=== PATIENT | male | born 1950 | race Caucasian/White ===

== ENCOUNTER 2023-07-20 20:05 | Inpatient (IN) | payer MEDICARE, OTHER ==
[~2023-07-20] VITALS: Ht 167.6 cm; Wt 76.2 kg
[2023-07-20 20:30] VITALS: BP 123/98; TEMP 98.4; O2SAT 96
[2023-07-20] MEDS ORDERED: TEMAZEPAM 15 MG CAPSULE PO PRN (22:00)
[2023-07-20] MEDS ORDERED: ACETAMINOPHEN 325 MG TABLET PO PRN (23:00)
[2023-07-20] MEDS ORDERED: ONDANSETRON HCL/PF 4 MG/2 ML VIAL IVP PRN (23:00)
[2023-07-20] MEDS ORDERED: Z GUARD REMEDY 4 OZ OINT TP PRN (23:00)
[2023-07-20] MEDS ORDERED: DEXTROSE 50%-WATER 50 ML DISP.SYRIN IV PRN (23:00)
[2023-07-20] MEDS ORDERED: MAGNESIUM HYDROXIDE 30 ML UDC PO PRN (23:00)
[2023-07-20] MEDS: LEVETIRACETAM (250 MG) 250 MG TABLET PO SCH (23:37)
[2023-07-20] MEDS: ENOXAPARIN SODIUM 40 MG/0.4 ML DISP.SYRIN SQ SCH (23:41)
[2023-07-20] MEDS: IV NS 0.9% 1,000 ML IV PRN (23:45)
[2023-07-21] VITALS (7 sets, daily range): BP systolic 115–141; BP diastolic 60–94; TEMP 97.8–99.9; O2SAT 96–97
[2023-07-21] MEDS ORDERED: CYAN10006 PO (03:35)
[2023-07-21] MEDS ORDERED: HYDR12.55 PO (03:35)
[2023-07-21] MEDS ORDERED: TAMS-12 PO (03:35)
[2023-07-21] MEDS ORDERED: DONE10TA44 PO (03:35)
[2023-07-21] MEDS ORDERED: ASPI-1420 PO (03:35)
[2023-07-21] MEDS ORDERED: METF-440 PO (03:35)
[2023-07-21] MEDS ORDERED: LOSA100T31 PO (03:35)
[2023-07-21] MEDS ORDERED: ROSU10TA2 PO (03:35)
[2023-07-21 06:17] LABS: BASOPHILS % (AUTO) 0.5 % (0.0-2.0); EOSINOPHILS # (AUTO) 0.3 K/uL (0.0-0.7); EOSINOPHILS % (AUTO) 4.4 % (0.0-6.0); HEMATOCRIT 38 % (39-51); HEMOGLOBIN 12.3 g/dL (13.5-17.5); LYMPHOCYTES # (AUTO) 1.8 K/uL (0.8-4.8); LYMPHOCYTES % (AUTO) 25.5 % (20.0-44.0); MEAN CORPUSCULAR HEMOGLOBIN 28 PG (26.0-33.0); MEAN CORPUSCULAR HGB CONC 33 g/dl (31.0-36.0); MEAN CORPUSCULAR VOLUME 86 fL (80-96); MONOCYTES # (AUTO) 0.6 K/uL (0.1-1.30); MONOCYTES % (AUTO) 9.1 % (2.0-12.0); NEUTROPHILS # (AUTO) 4.2 K/uL (1.8-8.9); NEUTROPHILS % (AUTO) 60.5 % (43.0-81.0); PLATELET COUNT (AUTO) 215 K/uL (150-450); RED CELL DISTRIBUTION WIDTH 14.4 % (11.5-15.0); WHITE BLOOD COUNT (AUTO) 6.9 K/uL (4.3-11.0)
[2023-07-21 06:37] LABS: ALANINE AMINOTRANSFERASE 16 U/L (12-78); ALBUMIN 2.9 g/dL (3.4-5.0); ALKALINE PHOSPHATASE 91 U/L (46-116); ASPARTATE AMINOTRANSFERASE 25 U/L (15-37); BILIRUBIN,DIRECT 0.1 mg/dL (0.0-0.2); BILIRUBIN,TOTAL 0.8 mg/dL (0.2-1.0); TOTAL PROTEIN, SERUM 6.6 g/dL (6.4-8.2)
[2023-07-21 06:49] LABS: CALCIUM, SERUM 8.5 mg/dL (8.5-10.1); CREATININE 0.8 mg/dL (0.6-1.3); MAGNESIUM 1.8 mg/dL (1.8-2.4); PHOSPHORUS 3.1 mg/dL (2.5-4.9); POTASSIUM 3.6 mmol/L (3.5-5.1)
[2023-07-21 07:11] LABS: THYROID STIMULATING HORMONE 2.473 uIU/mL (0.358-3.74)
[2023-07-21] MEDS: BLOOD SUGAR DIAGNOSTIC 1 EACH STRIP IN SCH ×4 (07:25→21:15)
[2023-07-21] MEDS: PANTOPRAZOLE 40 MG TABLET.DR PO SCH (08:02)
[2023-07-21] MEDS ORDERED: TEMA15CA5 PO (08:20)
[2023-07-21] MEDS: ASPIRIN EC 81 MG TABLET.DR PO SCH (08:51)
[2023-07-21] MEDS: LEVETIRACETAM (250 MG) 250 MG TABLET PO SCH (08:51)
[2023-07-21] MEDS: TAMSULOSIN 0.4 MG CAP.SR.24H PO SCH (08:52)
[2023-07-21] MEDS ORDERED: IOHEXOL-350 100 ML VIAL IV ONE (10:50)
[2023-07-21] MEDS ORDERED: IV NS 0.9% 250 ML IV ONE (10:51)
[2023-07-21] MEDS: INSULIN REGULAR, HUMAN 100 UNIT/ML 3 ML VIAL SQ PRN ×2 (12:04→17:52)
[2023-07-21] MEDS: ENOXAPARIN SODIUM 40 MG/0.4 ML DISP.SYRIN SQ SCH (20:30)
[2023-07-21] MEDS ORDERED: DONEPEZIL 5 MG TABLET PO SCH (22:00)
[2023-07-21] MEDS ORDERED: ATORVASTATIN 10 MG TABLET PO SCH (22:00)
[2023-07-22 00:54] VITALS: BP 133/80; TEMP 97.9; O2SAT 97
[2023-07-22] MEDS: IV NS 0.9% 1,000 ML IV PRN (03:41)
[2023-07-22 04:37] VITALS: BP 121/65; TEMP 98.6; O2SAT 96
[2023-07-22] MEDS: BLOOD SUGAR DIAGNOSTIC 1 EACH STRIP IN SCH ×2 (06:03→12:04)
[2023-07-22 06:52] LABS: CALCIUM, SERUM 8.6 mg/dL (8.5-10.1); CREATININE 0.7 mg/dL (0.6-1.3); POTASSIUM 3.7 mmol/L (3.5-5.1)
[2023-07-22 08:00] VITALS: BP 134/77; TEMP 97.7; O2SAT 95
[2023-07-22] MEDS: PANTOPRAZOLE 40 MG TABLET.DR PO SCH (08:05)
[2023-07-22] MEDS: ASPIRIN EC 81 MG TABLET.DR PO SCH (08:06)
[2023-07-22] MEDS: TAMSULOSIN 0.4 MG CAP.SR.24H PO SCH (08:06)
[2023-07-22] MEDS ORDERED: CLOP75TA15 PO (10:48)
[2023-07-22 12:00] VITALS: BP 128/72; TEMP 97.9; O2SAT 97
[2023-07-22] MEDS: INSULIN REGULAR, HUMAN 100 UNIT/ML 3 ML VIAL SQ PRN (13:22)
== END 2023-07-22 17:02 | disposition home or self-care (01) | DRG 68 ==
LOC: TELE 20:05
PROVIDERS: ADMIT Nurse Practitioner Family; ATTEND Nurse Practitioner Acute Care
DX: I65.23 Occlusion and stenosis of bilateral carotid arteries (principal); E87.20 Acidosis, unspecified; E78.5 Hyperlipidemia, unspecified; Z86.73 Personal history of transient ischemic attack (TIA), and cerebral infarction without residual deficits; N40.0 Benign prostatic hyperplasia without lower urinary tract symptoms; E11.9 Type 2 diabetes mellitus without complications; I10 Essential (primary) hypertension; Z79.84 Long term (current) use of oral hypoglycemic drugs; Z79.82 Long term (current) use of aspirin; Z79.899 Other long term (current) drug therapy; F03.A0 Unspecified dementia, mild, without behavioral disturbance, psychotic disturbance, mood disturbance, and anxiety; M50.31 Other cervical disc degeneration, high cervical region; Z79.02 Long term (current) use of antithrombotics/antiplatelets
CPT/HCPCS: 36415; 70496-TC; 70498-TC; 80048-TC; 80061-TC; 80076-TC; 82962-TC; 83735-TC; 84100-TC; 84443-TC; 84484-TC; 85025-TC; 87081-TC; 93307-TC; 93880-TC; 95819-TC; 97112-TC; 97116-TC; A4223; G0378; J1650; J1815; J7030; J7050; Q9967